=== PATIENT | male | born 1995 | race African-American/Black ===

== ENCOUNTER 2022-03-05 16:19 | Emergency (ER) | payer OTHER ==
[~2022-03-05] VITALS: Ht 172.7 cm; Wt 68.0 kg
[2022-03-05 16:34] VITALS: BP 98/52
[2022-03-05] MEDS ORDERED: ALBUTEROL (0.5%) 2.5MG/0.5ML NEB HHN ONE (17:00)
[2022-03-05] MEDS ORDERED: ALBU6.7H15 INH (17:02)
== END 2022-03-05 17:58 | disposition home or self-care (01) ==
LOC: ER 16:19
DX: J45.901 Unspecified asthma with (acute) exacerbation (principal); Z79.51 Long term (current) use of inhaled steroids
CPT/HCPCS: 94640; 99283; Z7610

== ENCOUNTER 2022-06-15 22:16 | Emergency (ER) | payer SELFPAY ==
[~2022-06-15] VITALS: Ht 172.7 cm; Wt 66.2 kg
[~2022-06-15 22:16] MED LIST: ALBU6.7H15 INH
[2022-06-15 22:22] VITALS: BP 114/67
== END 2022-06-16 01:30 | disposition left against medical advice (07) ==
LOC: ER 22:16
DX: Z53.21 Procedure and treatment not carried out due to patient leaving prior to being seen by health care provider (principal); R06.02 Shortness of breath
CPT/HCPCS: 93005